=== PATIENT | female | born 1985 | race African-American/Black ===

== ENCOUNTER 2019-05-15 15:09 | Emergency (ER) | payer OTHER ==
[2019-05-15 15:14] VITALS: BP 113/58; PULSE 73; RESP 18; TEMP 98.1
--- NOTE | 2019-05-15 15:18 | ED ---
General Adult HPI - General Chief complaint: Head Injury Stated complaint: head injury Time Seen by Provider: 05/15/19 15:10 Source: patient, RN notes reviewed Mode of arrival: EMS Limitations: no limitations - History of Present Illness Initial comments: 34-year-old female presents to the emergency determine for a chief complaint of head injury patient states that four days ago she hit her head against a log. States she did not lose consciousness but has a bump to her forehead. States she has had headaches ever since. States that she was at [place] works using the computer screen when her headache got worse and she felt she needed to be evaluated at the hospital. Patient did not have any loss of consciousness at that time. Admits to nausea but denies vomiting. Denies any difficulty walking. Denies blood thinner usage. Patient has no other complaints at this time including shortness of breath, chest pain, abdominal pain, nausea or vo miting, headache, or visual changes. - Related Data Allergies Allergy/AdvReac Type Severity Reaction Status Date / Time No Known Allergies Allergy Verified 05/15/19 15:14 Review of Systems ROS Statement: Those systems with pertinent positive or pertinent negative responses have been documented in the HPI. ROS Other: All systems not noted in ROS Statement are negative. Past Medical History Past Medical History: No Reported History History of Any Multi-Drug Resistant Organisms: None Reported Past Surgical History: No Surgical Hx Reported Past Psychological History: No Psychological Hx Reported Smoking Status: Current every day smoker Past Alcohol Use History: None Reported Past Drug Use History: None Reported General Exam Limitations: no limitations General appearance: alert, in no apparent distress Head exam: Present: atraumatic, normocephalic, normal inspection Eye exam: Present: normal appearance, PERRL, EOMI. Absent: scleral icterus, conjunctival injection, periorbital swelling ENT exam: Present: normal exam, normal oropharynx, mucous membranes moist, TM's normal bilaterally, normal external ear exam Neck exam: Present: normal inspection, full ROM. Absent: tenderness, meningismus, lymphadenopathy Respiratory exam: Present: normal lung sounds bilaterally. Absent: respiratory distress, wheezes, rales, rhonchi, stridor Cardiovascular Exam: Present: regular rate, normal rhythm, normal heart sounds. Absent: systolic murmur, diastolic murmur, rubs, gallop, clicks Neurological exam: Present: alert, oriented X3, normal gait, other (GCS 15) Psychiatric exam: Present: normal affect, normal mood Course Vital Signs 05/15/19 15:10 Temperature 98.1 F Pulse Rate 73 Respiratory 18 Rate Blood Pressure 113/58 O2 Sat by Pulse 98 Oximetry Medical Decision Making - Medical Decision Making Physical exam is unremarkable. Patient is ambulatory without difficulty. No focal neurologic deficits. CT brain shows no acute cranial hemorrhage or midline shift. Patient will be discharged home to follow up with primary care. She'll return here if there are any worsening symptoms. - Lab Data Lab Results 05/15/19 Range/Units 15:15 Urine HCG, Qual Not Detected (Not Detectd) Disposition Clinical Impression: Head injury Disposition: HOME SELF-CARE Condition: Good Instructions (If sedation given, give patient instructions): Head Injury (ED) Additional Instructions: Please take Tylenol for pain. Follow-up with primary care 1-2 days. Return to the emergency department if you have any worsening symptoms. Is patient prescribed a controlled substance at d/c from ED?: No Referrals: Luis Felipe Serrato MD [REFERRING] - 1-2 days Time of Disposition: 16:32
--- NOTE | 2019-05-15 16:25 | CT ---
EXAMINATION TYPE: CT brain wo con DATE OF EXAM: 05/15/2019 COMPARISON: None. HISTORY: Headache after frontal head injury. CT DLP: 1114.4 mGycm. Automated Exposure Control for Dose Reduction was Utilized. TECHNIQUE: CT scan of the head is performed without contrast. FINDINGS: There is no acute intracranial hemorrhage, mass effect, or midline shift identified. The ventricles and sulci are within normal limits in size. Camara-white matter differentiation is maintain ed. The globes are intact and the visualized sinuses are clear. The calvarium is intact. IMPRESSION: No acute intracranial hemorrhage or midline shift is seen.
== END 2019-05-15 16:45 | disposition home or self-care (01) ==
LOC: EC 15:09
DX: S09.90XA Unspecified injury of head, initial encounter (principal); R40.2412 Glasgow coma scale score 13-15, at arrival to emergency department; F17.200 Nicotine dependence, unspecified, uncomplicated; W22.8XXA Striking against or struck by other objects, initial encounter
CPT/HCPCS: 70450; 81025; 99284